=== PATIENT | female | born 1985 | race Caucasian/White ===

== ENCOUNTER 2017-08-07 14:02 | Emergency (ER) | payer SELFPAY ==
[~2017-08-07] VITALS: Ht 162.6 cm; Wt 61.2 kg
[~2017-08-07 14:02] MED LIST: DiphenhydrAMINE 50mg/ml Inj IM ONE; Haloperidol 5mg/ml Inj IM ONE; LORazepam Inj 2mg/ml 1ml IM ONE
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
[2017-08-07] MEDS ORDERED: Thiamine HCl 100 MG in D5W 55 ML IVPB SCH (14:15)
[2017-08-07] MEDS ORDERED: Tubing IV Cassette IV ONE (14:33)
[2017-08-07] MEDS ORDERED: Tubing IV Secondary IV ONE (14:33)
[2017-08-07] MEDS ORDERED: NS 55 ML IV ONE (14:33)
[2017-08-07] MEDS ORDERED: Thiamine HCl 100mg/ml 2 ml Inj ONE (14:33)
[2017-08-07 15:11] LABS: BASOPHILS % (AUTO) 1.2 % (0.0-2.0); EOSINOPHILS % (AUTO) 1.4 % (0.0-3.0); LYMPHOCYTES % (AUTO) 52.2 % (20.0-45.0); MEAN CORPUSCULAR HEMOGLOBIN 34.9 PG (27.0-31.0); MEAN CORPUSCULAR HGB CONC 33.4 G/DL (32.0-36.0); MEAN CORPUSCULAR VOLUME 105 FL (80-99); MEAN PLATELET VOLUME 7.1 FL (6.5-10.1); MONOCYTES % (AUTO) 9.1 % (1.0-10.0); NEUTROPHILS % (AUTO) 36.2 % (45.0-75.0); PLATELET COUNT 275 K/UL (150-450); RED BLOOD COUNT 3.73 M/UL (4.20-5.40); WHITE BLOOD COUNT 4.8 K/UL (4.8-10.8)
[2017-08-07 15:30] VITALS: BP 129/75
[2017-08-07 15:32] LABS: ANION GAP 13 mmol/L (5-15); CALCIUM 8.6 MG/DL (8.5-10.1); CARBON DIOXIDE 32 MMOL/L (21-32); CHLORIDE 106 MMOL/L (98-107); CREATININE 0.8 MG/DL (0.55-1.30); GLOMERULAR FILTRATION RATE > 60 mL/min (>60); SODIUM 151 MMOL/L (136-145)
[2017-08-07 15:38] LABS: ALANINE AMINOTRANSFERASE 53 U/L (12-78); ALCOHOL 425 mg/dL; ASPARTATE AMINO TRANSFERASE 45 U/L (15-37); TOTAL PROTEIN 7.9 G/DL (6.4-8.2)
[2017-08-07 15:40] LABS: ACETAMINOPHEN < 2 MCG/ML (10-30)
[2017-08-07 16:11] LABS: APPEARANCE,URINE CLOUDY; KETONES,URINE NEGATIVE (NEGATIVE); LEUKOCYTE ESTERASE ,URINE NEGATIVE (NEGATIVE); NITRITE,URINE NEGATIVE (NEGATIVE); PH,URINE 7 (4.5-8.0); PROTEIN,URINE NEGATIVE (NEGATIVE); UROBILINOGEN,URINE NORMAL MG/DL (0.0-1.0)
[2017-08-07 17:00] VITALS: BP 123/71
[2017-08-07 17:30] VITALS: BP 107/63
[2017-08-07] MEDS ORDERED: Haloperidol 5mg/ml Inj IM ONE (17:30)
[2017-08-07 18:00] VITALS: BP 83/51
[2017-08-07 19:08] VITALS: BP 91/42
[2017-08-07 23:45] VITALS: BP 101/60
[2017-08-08 02:03] VITALS: BP 109/56
[2017-08-08 03:14] VITALS: BP 105/60
[2017-08-08 04:35] VITALS: BP 110/53
[2017-08-08 05:38] VITALS: BP 110/53
--- NOTE | 2017-08-09 17:08 | Cardiology Report ---
APPROVED REPORT EKG Measurement Heart [id number] Normal sinus rhythm Normal ECG
== END 2017-08-08 05:45 | disposition home or self-care (01) ==
LOC: EDBD 14:02 → EMR 14:30
DX: F91.9 Conduct disorder, unspecified (principal); F10.129 Alcohol abuse with intoxication, unspecified; F14.10 Cocaine abuse, uncomplicated; Y90.8 Blood alcohol level of 240 mg/100 ml or more; Z78.1 Physical restraint status
CPT/HCPCS: 36415; 51701; 80053; 80307; 81003; 81025; 82550; 85025; 93005; 96361; 96365; 96372; 99285; G0480; J1200; J1630; 80329; 99284